=== PATIENT | female | born 1950 | race Caucasian/White ===

== ENCOUNTER 2023-08-24 20:36 | Emergency (ER) | payer MEDICARE, BC ==
[~2023-08-24] VITALS: Ht 167.6 cm; Wt 84.1 kg
[~2023-08-24 20:36] MED LIST: DETROL LA4 PO; EFFEXOR XR75 MG/CAP PO; SYNTHROID0.05 MG/TA PO; TESSALON PERLE200 MG PO
[2023-08-24 20:47] VITALS: BP 149/76; TEMP 97.5
[2023-08-24] MEDS ORDERED: Ibuprofen 400 MG TAB PO ONE (22:15)
[2023-08-24] MEDS ORDERED: CRUTCHES MC (23:15)
[2023-08-24 23:45] VITALS: PULSE 76
== END 2023-08-24 23:46 | disposition home or self-care (01) ==
LOC: COL.ER 20:36
DX: M25.571 Pain in right ankle and joints of right foot (principal); M25.572 Pain in left ankle and joints of left foot; M25.562 Pain in left knee; W17.89XA Other fall from one level to another, initial encounter; X50.1XXA Overexertion from prolonged static or awkward postures, initial encounter